=== PATIENT | female | born 1980 | race African-American/Black ===

== ENCOUNTER 2021-06-13 21:43 | Emergency (ER) | payer OTHER ==
[~2021-06-13] VITALS: Ht 165.1 cm; Wt 72.6 kg
[2021-06-13 21:45] VITALS: BP 141/88
== END 2021-06-13 23:39 | disposition home or self-care (01) ==
LOC: ER 21:43
DX: S27.818A Other injury of esophagus (thoracic part), initial encounter (principal); W56.52XA Struck by other fish, initial encounter; Y93.89 Activity, other specified; Y92.89 Other specified places as the place of occurrence of the external cause; Y99.8 Other external cause status